=== PATIENT | male | born 1965 | race Caucasian/White ===

== ENCOUNTER 2018-11-27 08:37 | Emergency (ER) | payer BC ==
--- NOTE | 2018-11-27 09:05 | PHYS DOC ---
Adult General Chief Complaint Chief Complaint: palpitations HPI HPI Patient is a 53-year-old male who presents with complaint of feeling like he's having to catch his breath several times in the last 45 minutes. He states that it feels like he is about to have some hiccups when he takes a deep breath res olve the issue. He states these not actually had hiccups and further describes it as like his heart skips a beat and then he has to take in a deep breath to start his breathing again. He also indicates that he has a headache on the left side of his head and face that he rates at a 3 out of 10 and describes it as a dull ache. He also complains of tingling in both his hands. He does admit that he may have been a little anxious over the last 45 minutes since onset of symptoms. He denies any chest pain or actual shortness of breath. Patient is unable to further describe symptoms.[] Review of Systems Review of Systems Constitutional: Denies fever or chills [] Respiratory: Denies cough or shortness of breath [] Cardiovascular: No additional information not addressed in HPI [] GI: Denies abdominal pain, nausea, vomiting or diarrhea [] Neurologic: Complains of headache without focal weakness. Admits to tingling in both hands. [] All other systems were reviewed and found to be within normal limits, except as documented in this note. Physical Exam Physical Exam Constitutional: Well developed, well nourished, no acute distress, non-toxic appearance. [] HENT: Normocephalic, atraumatic, bilateral external ears normal, oropharynx moist, no oral exudates, nose normal. [] Eyes: PERRLA, EOMI, conjunctiva normal, no discharge. [] Neck: Normal range of motion, no tenderness, supple, no stridor. [] Cardiovascular:Heart rate regular rhythm, no murmur [] Lungs & Thorax: Bilateral breath sounds clear to auscultation [] Abdomen: Bowel sounds normal, soft, no tenderness. [] Skin: Warm, dry, no erythema, no rash. [] Extremities: No tenderness, no cyanosis, no clubbing, ROM intact. [] Neurologic: Alert and oriented X 3, no focal deficits noted. [] EKG EKG EKG demonstrates NSR with rate of 71.[] Radiology/Procedures Radiology/Procedures [] Impressions: PROCEDURE: PORTABLE CHEST 1V PORTABLE CHEST 1V History: Palpitations Comparison: None. Findings: Single view of the chest is submitted. There is no infiltrate, pneumothorax, or effusion. The pericardial cardiac silhouette is within normal limits in size given technique. Impression: 1. There is no radiographic evidence of acute cardiopulmonary disease. Electronically signed by: Wali Castillo MD (11/27/2018 9:27 AM) [id number] Course & Med Decision Making Course & Med Decision Making Pertinent Labs and Imaging studies reviewed. (See chart for details) [] Dragon Disclaimer Dragon Disclaimer This electronic medical record was generated, in whole or in part, using a voice recognition dictation system. Departure Departure: Impression: Primary Impression: Palpitations Disposition: 01 HOME, SELF-CARE Condition: STABLE Referrals: MELINDA WU (PCP) Patient Instructions: Palpitations CHRISTOPHER MARISCAL Jr. DO Nov 27, 2018 09:05
--- NOTE | 2018-11-27 09:30 | RAD ---
PORTABLE CHEST 1V History: Palpitations Comparison: None. Findings: Single view of the chest is submitted. There is no infiltrate, pneumothorax, or effusion. The pericardial cardiac silhouette is within normal limits in size given technique. Impression: 1. There is no radiographic evidence of acute cardiopulmonary disease. Electronically signed by: Wali Castillo MD (11/27/2018 9:27 AM) [id number]
[2018-11-27 09:34] LABS: BASO % 1 % (0-3); EOS % 1 % (0-3); HEMOGLOBIN 16.2 g/dL (13.0-17.5); LYMPH # 1.3 x10^3/uL (1.0-4.8); LYMPH % 24 % (24-48); MEAN CORPUSCULAR HEMOGLOBIN 30 pg (25-35); MEAN CORPUSCULAR HGB CONC 33 g/dL (31-37); MEAN CORPUSCULAR VOLUME 89 fL (79-100); MONO # 0.5 x10^3/uL (0.0-1.1); MONO % 10 % (0-9); NEUT # 3.4 x10^3uL (1.8-7.7); NEUT % 65 % (31-73); PLATELET COUNT 185 x10^3/uL (140-400); RED BLOOD COUNT 5.49 x10^6/uL (4.30-5.70); RED CELL DISTRIBUTION WIDTH 15.3 % (11.5-14.5); WHITE BLOOD COUNT 5.3 x10^3/uL (4.0-11.0)
[2018-11-27 10:22] LABS: ALBUMIN 4.1 g/dL (3.4-5.0); ALBUMIN/GLOBULIN RATIO 1.4 (1.0-1.7); CALCIUM 9.1 mg/dL (8.5-10.1); CREATININE 0.9 mg/dL (0.7-1.3); GFR 88.3; POTASSIUM 4.8 mmol/L (3.5-5.1); TOTAL BILIRUBIN 0.5 mg/dL (0.2-1.0); TOTAL PROTEIN 7.1 g/dL (6.4-8.2)
[2018-11-27 11:00] VITALS: BP 114/58
== END 2018-11-27 11:00 | disposition home or self-care (01) ==
LOC: ER 08:37
DX: R00.2 Palpitations (principal); R51 Headache; R20.2 Paresthesia of skin
CPT/HCPCS: 36415; 71045; 80053; 83880; 84484; 85025; 85379; 93005; 99285